=== PATIENT | female | born 1960 | race Caucasian/White ===

== ENCOUNTER 2016-11-16 08:51 | Day surgery (SDC) | payer BC ==
[2016-11-16] MEDS ORDERED: PROPOFOL 10 MG/ML VIAL IV ONE (16:11)
[2016-11-16] MEDS ORDERED: LIDOCAINE 2% MDV (20MG/ML) 20ML VIAL IV ONE (16:11)
[2016-11-16] MEDS ORDERED: MIDAZOLAM HCL 2MG/2ML VIAL IV ONE (16:11)
--- NOTE | 2016-11-23 10:52 | Operative Note ---
DATE OF SURGERY: 11/16/2016 Referring Physician: David Kebede PREOPERATIVE DIAGNOSIS: See below. POSTOPERATIVE DIAGNOSIS: See below. OPERATION: COLONOSCOPY to the cecum with cold biopsy, forceps polypectomy x2. Indication: Prior history of colon polyps. Patient had adenoma removed previously. She returns at this time for surveillance. Anesthesia: Intravenous sedation was administered by Department of Anesthesiology and included Diprivan titrated to effect. PROCEDURE: Following informed consent from this alert individual, including a discussion of the risks and benefits of the procedure and an opportunity for the patient to ask questions, the patient was placed in the left lateral decubitus position. Digital rectal examination was performed. No abnormalities were noted. Following this, an Olympus [id number] video colonoscopy was inserted into the rectum without resistance. The rectal mucosa had a normal appearance, with normal folds and distensibility. The colonoscope was advanced up through the colon to the level of the cecum without much difficulty. Throughout the bowel, the mucosa appeared normal, folds are normal, and the bowel is fairly distensible. The cecum was defined by noting the appendiceal orifice and ileocecal valve. Retroflexion was accomplished in the cecum and found to be unremarkable. The colon preparation was good. From the base of the cecum, the colonoscope was then withdrawn. There were two diminutive polyps noted, one in the sigmoid colon and one in the rectum, each measuring 3 mm in size and each removed with cold biopsy and forceps. Retroflexion in the rectum was unremarkable. No other changes were noted. The endoscope was removed. The patient tolerated the procedure well and was returned to the Recovery Area in stable condition. IMPRESSION: Two diminutive 3 mm polyps removed from the sigmoid colon and rectum with biopsy with forceps. The remainder of the study was unremarkable. RECOMMENDATIONS: Further recommendations will be forthcoming pending results of pathology taken today. Followup will also be with Whitney Easton. CC: Whitney Easton M.D. DOROTEO
== END 2016-11-16 11:20 | disposition home or self-care (01) ==
LOC: HOP 08:51
PROVIDERS: ATTEND Internal Medicine Gastroenterology
DX: Z09 Encounter for follow-up examination after completed treatment for conditions other than malignant neoplasm (principal); Z86.010 Personal history of colon polyps; K63.5 Polyp of colon; K62.1 Rectal polyp; F17.200 Nicotine dependence, unspecified, uncomplicated